=== PATIENT | female | born 1990 | race Caucasian/White ===

== ENCOUNTER 2016-04-10 16:58 | Outpatient (CLI) | payer OTHER ==
[~2016-04-10] VITALS: Ht 162.6 cm; Wt 90.0 kg
[~2016-04-10 16:58] MED LIST: ACET500C5 PO; FAMO-18 PO; PREN-39 PO
[2016-04-10 17:06] VITALS: BP 107/55; PULSE 72; RESP 19; Ht 162.6 cm; Wt 90.0 kg
--- NOTE | 2016-04-10 17:50 | RADRPT ---
PROCEDURE: US OB. CLINICAL INDICATION: Cholestasis. TECHNIQUE: Multiple sonographic images of the uterus were obtained. The images were revi ewed on a PACS workstation. COMPARISON: No prior studies are available for comparison. FINDINGS: There is a single live intrauterine gestation. heart rate is 139 beats per minute. Measurements were made in order to determine age. The results are as follows: BPD = 9.13 cm. HC = 32.10 cm. AC = 35.50 cm. FL = 7.33 cm. Estimated weight is 3458 +/- 519 grams. LMP growth percentile is 68%. Menstrual age by ultrasound dates is 37 weeks 4 days. The estimated date of delivery is 04/27/2016. Position is cephalic and placenta is anterior grade II. There is no evidence for an abruption or irene centa previa. IMPRESSION: 1. Single live intrauterine gestation of 37 weeks 4 days menstrual age by ultrasound dates. 2. The estimated date of delivery is 04/27/2016. RPTAT: QQ .Mati Roche MD, Date Time Electronically viewed and signed by .Mati Roche MD, on 04/10/2016 17:50 .R/
--- NOTE | 2016-04-10 17:56 | RADRPT ---
PROCEDURE: US biophysical profile. CLINICAL INDICATION: Cholestasis. TECHNIQUE: Multiple sonographic images of the uterus were obtained. The images were revi ewed on a PACS workstation. COMPARISON: No prior studies are available for comparison. FINDINGS: There is a single live intrauterine gestation. heart rate is 144 beats per minute. The position is cephalic. The placenta is anterior grade II with no abruption or previa. The TRACI is 12.6 cm. (Normal = 5-20 cm.) Breathing Movement: 2 Gross Body Movement: 2 Tone: 2 Qualitative Amniotic Fluid Volume: 2 TOTAL: 8 IMPRESSION: 1. The biophysical score is 8/8. RPTAT: QQ .Mati Roche MD, Date Time Electronically viewed and signed by .Mati Roche MD, on 04/10/2016 17:56 .R/
--- NOTE | 2016-04-10 18:56 | TRIAGE ---
OB Triage Datetime Report Generated by CPN: 04/10/2016 18:55 Datetime: 04/10/2016 18:10 Stage of : OB Triage Maternal Assessment Level of Consciousness: Fully Conscious DTR's/Clonus: DTRs 1+ Headache: Denies Breath Sounds, Left: Clear and Equal Breath Sounds, Right: Clear and Equal Nausea/Vomiting: Denies RUQ Epigastric Pain: Denies Labor Evaluation Frequency: IRREGULAR Monitor Mode: External Quality: Mild Pattern: Normal: <= 5 Contractions in 10 Minutes Resting Tone Padroni: Relaxed Heart Rate FHR Baseline Rate: 140 Monitor Mode: External US Variability: Moderate 6-25 bpm Accelerations: 15X15 Decelerations: None Category: Category I Pain Assessment Pain Presence: None/Denies Pain Type: N/A Vaginal Exam Membrane Status: Intact Datetime: 04/10/2016 17:22 EGA: 38.1 Datetime: 04/10/2016 17:12 Maternal Assessment Level of Consciousness: Fully Conscious DTR's/Clonus: DTRs 1+ Headache: Denies Blurred Vision: No Respiratory Effort: Unlabored Breath Sounds, Left: Clear and Equal Breath Sounds, Right: Clear and Equal Nausea/Vomiting: Denies RUQ Epigastric Pain: Denies Facial Edema: None Labor Evaluation Frequency: X1 Monitor Mode: External Duration (sec)2399: 60 Quality: Mild Pattern: Normal: <= 5 Contractions in 10 Minutes Resting Tone Padroni: Relaxed Heart Rate FHR Baseline Rate: 140 Monitor Mode: External US Variability: Moderate 6-25 bpm Accelerations: 15X15 Decelerations: None Category: Category I Pain Assessment Pain Presence: None/Denies Pain Type: N/A Vaginal Exam Membrane Status: Intact Datetime: 04/10/2016 17:00 Time of Arrival: 04/10/2016 17:00 Arrived By: Ambulatory Arrived From: Office Chief Complaint: R/O CHOLESTASIS Movement: Present Contractions: Irregular Time Contractions Began: 04/10/2016 08:00 Rupture of Membranes: Denies Vaginal Discharge: Denies Recent Sexual Intercouse: Denies Abdominal Trauma: Not Applicable Patient Complaints: Other Time Provider Notified: 04/10/2016 17:00 Provider Notified: UZAIR Initial Plan: NST, BPP, EFW
== END 2016-04-10 18:53 | disposition home or self-care (01) ==
LOC: OBT 16:58 → L-D 16:59 → OBT 18:53
PROVIDERS: ATTEND Obstetrics & Gynecology
DX: O47.1 False labor at or after 37 completed weeks of gestation (principal); Z3A.38 38 weeks gestation of pregnancy
CPT/HCPCS: 76815; 76818; Z7500; G0463

== ENCOUNTER 2016-04-13 19:29 | Outpatient (CLI) | payer OTHER ==
[~2016-04-13] VITALS: Ht 160 cm; Wt 88.2 kg
[2016-04-13 20:02] VITALS: Ht 160 cm; Wt 88.2 kg
[2016-04-13 20:03] VITALS: BP 123/63; PULSE 82; RESP 18
--- NOTE | 2016-04-13 21:11 | RADRPT ---
PROCEDURE: US OB biophysical profile. CLINICAL INDICATION: decreased movements TECHNIQUE: Multiple sonographic images of the pelvis were obtained. The images were reviewed on a PACS workstation. COMPARISON: 04/10/2016 FINDINGS: There is a single viable intrauterine gestation. Cardiac activity is present with 143 beats per min cowlitz. There is a vertex presentation. The placenta is anterior. There is no evidence of placental abruption. There is a normal amount of amniotic fluid with an TRACI = 9.7 cm. Biophysical profile: movement 2/2 tone 2/2. breathing 2/2 TRACI 2/2 Total 10/24 RPTAT: AA . IMPRESSION: Normal biophysical profile. . .Junior Becerra MD, MD Date Time Electronically viewed and signed by .Junior Becerra MD, MD on 04/13/2016 21:11 .S/
--- NOTE | 2016-04-13 22:39 | QN ---
Documentation Comment Laborist Dr Duran's pt 25 y.o. with an IUP at 38 w 4 d here for a follow up NST and BPP for presumed cholestasis as labs are pending. +FM. + Occasional UC's. No VB. Pt reports only itching on her shoulders with a rash? No hands or feet involvement. Was given a steroid cream in the clinic. PMHx: gallstones, possible cholestasis. PSHx: none. All: latex. WR=240/63. T=98.5 NST= baseline 130 bpm with accels to 170 bpm. No declels. UC's q 15-30 minutes. CX: close/thick/-3. BPP 8/8 with an TRACI of 9.7 cm. Vtx. Anterior placenta. A: IUP at 38 w 4 d. Presumed cholestasis. + Gallstones. P: For f/u in the clinic tomorrow as scheduled. Will give pt a copy of the BPP to take with her. LOIS TORRES MD Apr 13, 2016 22:38
== END 2016-04-13 22:00 | disposition home or self-care (01) ==
LOC: OBT 19:29 → L-D 19:29 → OBT 22:00
PROVIDERS: ATTEND Obstetrics & Gynecology
DX: O99.613 Diseases of the digestive system complicating pregnancy, third trimester (principal); K80.20 Calculus of gallbladder without cholecystitis without obstruction; Z3A.38 38 weeks gestation of pregnancy
CPT/HCPCS: 76818; Z7500; G0463

== ENCOUNTER 2016-04-18 06:00 | Inpatient (IN) | payer OTHER ==
[~2016-04-18] VITALS: Ht 160 cm; Wt 88.3 kg
[~2016-04-18 06:00] MED LIST changes: -ACET500C5 PO; -FAMO-18 PO
[2016-04-18 06:21] VITALS: Ht 160 cm; Wt 88.3 kg
[2016-04-18 06:22] VITALS: BP 118/60; PULSE 87; RESP 18
[2016-04-18] MEDS ORDERED: LIDOCAINE 1% (MPF) 30 ML INJ INJ PRN (06:30)
[2016-04-18] MEDS ORDERED: MISOPROSTOL 200 MCG TAB PR PRN ×2 (06:30→15:30)
[2016-04-18] MEDS ORDERED: CARBOPROST 250 MCG INJ IM PRN ×2 (06:30→15:30)
[2016-04-18] MEDS ORDERED: OXYTOCIN 30 UNITS/LR 500 ML IV SCH ×2 (06:30)
[2016-04-18] MEDS ORDERED: METHYLERGONOVINE 0.2 MG INJ IM PRN ×2 (06:30→15:30)
[2016-04-18] MEDS ORDERED: LACTATED RINGER'S 1,000 ML IV PRN (06:30)
[2016-04-18] MEDS ORDERED: OXYTOCIN 30 UNITS/LR 500 ML IV PRN ×2 (06:30→15:30)
[2016-04-18] MEDS: LACTATED RINGER'S 1,000 ML IV SCH ×2 (06:54→12:11)
[2016-04-18 07:05] LABS: BASOPHILS % 0.2 % (0.0-2.0); EOSINOPHILS # 0.1 10^3/ul (0.0-0.5); EOSINOPHILS % 1.3 % (0.0-7.0); HEMATOCRIT 37.8 % (37.0-47.0); HEMOGLOBIN 12.9 g/dl (12.0-16.0); LYMPHOCYTES # 2.1 10^3/ul (0.8-2.9); LYMPHOCYTES % 18.8 % (15.0-51.0); MEAN CORPUSCULAR HGB CONC 34.2 g/dl (32.0-37.0); MEAN CORPUSCULAR VOLUME 93.6 fl (82.0-101.0); MEAN PLATELET VOLUME 10.1 fl (7.4-10.4); MONOCYTE # 0.6 10^3/ul (0.3-0.9); MONOCYTES % 5.6 % (0.0-11.0); NEUTROPHIL # 8.4 10^3/ul (1.6-7.5); NEUTROPHILS % 74.1 % (39.0-77.0); PLATELET COUNT 195 10^3/UL (140-440); RED BLOOD COUNT 4.04 10^6/ul (4.20-5.40); RED CELL DISTRIBUTION WIDTH 14.1 % (11.5-14.5); UNCORRECTED WBC 11.3 10^3/ul (4.8-10.8); WHITE BLOOD COUNT 11.3 10^3/ul (4.8-10.8)
[2016-04-18 07:13] LABS: INR 0.88; PROTIME 11.9 Sec (12.2-14.2); PT RATIO 0.9
[2016-04-18 07:14] LABS: PARTIAL THROMBOPLASTIN TIME 27.8 Sec (25.0-35.0)
[2016-04-18 07:29] LABS: CONDITION 1
[2016-04-18] MEDS ORDERED: MISOPROSTOL 200 MCG TAB PO SCH (08:15)
[2016-04-18] MEDS ORDERED: FENTAnyl 2MCG/ML-ROPIV 0.2% 100 ML ONE (08:37)
[2016-04-18] MEDS ORDERED: NALOXONE (0.4 MG/ML) INJ IV PRN (10:00)
[2016-04-18] MEDS ORDERED: FENTAnyl 2MCG/ML-ROPIV 0.2% 100 ML BAG EPI SCH (10:00)
--- NOTE | 2016-04-18 12:43 | HP ---
Date/Time of Note Date/Time of Note DATE: 04/18/16 TIME: 12:40 OB - History Hx of Present Chief Complaint: contractions Last Menstrual Period: July 18, 2015 Estimated Due Date: Apr 23, 2016 : 2 Para: 1 Spontaneous : 0 Therapeutic : 0 Care: Good Care Ultrasounds: Normal mid trimester US Obstetrical Complications: None Medical Complications: None Past Family/Social History * Past Medical, Surgical, Family and Obstetric Histories reviewed from chart. GBS Status: Negative OB Admission Exam Vital Signs Vital Signs Vital Signs Date Time Temp Pulse Resp B/P Pulse Ox O2 Delivery O2 Flow Rate FiO2 04/18/16 06:22 98.2 87 18 118/60 Physical Exam HEENT: WNL Heart: Rhythm Normal Lungs: Clear Abdomen: WNL Extremities: Normal Cervical Dilatation: 1cm Effacement: 75% Station: -2 Membranes: Intact Heart Rate: 140's Accelerations: Accelerations Present Decelerations: No Decelerations Varibility: Moderate Contractions on Admission: < 5 Minutes Apart Last 72 hours Lab Results CBC & BMP 04/18/16 06:15 OB Assessment/Plan Reason for admission: active labor Plan: Expectant Management CHARLIE DUNNE MD Apr 18, 2016 12:43
--- NOTE | 2016-04-18 13:04 | LDN ---
Date/Time of Note Date/Time of Note DATE: 04/18/16 TIME: 13:01 Delivery Summary over intact perineum Placenta Delivered: Spontaneously Meconium: none Perineum intact?: Yes Anesthesia type: Epidural Estimated blood loss: 200 Sponge & Needle done & correct: Yes All needle counts correct: Yes Any foreign bodies felt in the: No Problems: Delivery Information Sex Infant Sex: female Apgars 1 Minute: 9 5 Minute: 9 Suctioning Nose & mouth suctioned at little: Yes Delee suction performed: No Umbilical Cord Umbilical cord with: 3 Vessels Cord presentations: no nuchal cord Cord Blood was obtained: Yes Mother & Baby Disposition Disposition Mom & Baby to Maternity; Good: Yes CHARLIE DUNNE MD Apr 18, 2016 13:04
[2016-04-18] MEDS ORDERED: LACTATED RINGER'S 1,000 ML IV* SCH (15:08)
[2016-04-18 15:10] VITALS: BP 119/70; PULSE 82; RESP 18
[2016-04-18] MEDS ORDERED: BENZOCAINE 20% 56 ML SPRAY TOP PRN (15:30)
[2016-04-18] MEDS ORDERED: ACETAMINOPHEN 325 MG TAB PO PRN (15:30)
[2016-04-18] MEDS ORDERED: ACETAMINOPHEN/CODEINE #3 TAB PO PRN (15:30)
[2016-04-18] MEDS ORDERED: DIBUCAINE 1% 30 GM OINT PR PRN (15:30)
[2016-04-18] MEDS: WITCH HAZEL/GLYCERIN PAD PR PRN (17:18)
[2016-04-18] MEDS: IBUPROFEN 600 MG TAB PO SCH ×2 (17:18→23:34)
[2016-04-18 19:45] VITALS: BP 109/54; PULSE 83; RESP 18
[2016-04-18] MEDS: SENNA/DOCUSATE NA (8.6MG/50MG) TAB PO SCH (21:00)
[2016-04-19 04:05] VITALS: BP 101/60; PULSE 85; RESP 18
[2016-04-19] MEDS: IBUPROFEN 600 MG TAB PO SCH ×3 (05:35→17:35)
[2016-04-19 07:41] LABS: BASOPHILS % 0.3 % (0.0-2.0); EOSINOPHILS # 0.1 10^3/ul (0.0-0.5); EOSINOPHILS % 1.4 % (0.0-7.0); HEMATOCRIT 34.3 % (37.0-47.0); HEMOGLOBIN 11.7 g/dl (12.0-16.0); LYMPHOCYTES % 18.6 % (15.0-51.0); MEAN CORPUSCULAR HEMOGLOBIN 31.8 pg (29.0-33.0); MEAN CORPUSCULAR VOLUME 93.5 fl (82.0-101.0); MEAN PLATELET VOLUME 10.3 fl (7.4-10.4); MONOCYTE # 0.5 10^3/ul (0.3-0.9); MONOCYTES % 4.5 % (0.0-11.0); NEUTROPHILS % 75.2 % (39.0-77.0); PLATELET COUNT 168 10^3/UL (140-440); RED BLOOD COUNT 3.67 10^6/ul (4.20-5.40); RED CELL DISTRIBUTION WIDTH 14.5 % (11.5-14.5); UNCORRECTED WBC 10.6 10^3/ul (4.8-10.8); WHITE BLOOD COUNT 10.6 10^3/ul (4.8-10.8)
[2016-04-19 07:46] LABS: CONDITION 1
[2016-04-19 08:00] VITALS: BP 116/61; PULSE 85; RESP 20
[2016-04-19] MEDS: WITCH HAZEL/GLYCERIN PAD PR PRN (08:50)
[2016-04-19] MEDS: SENNA/DOCUSATE NA (8.6MG/50MG) TAB PO SCH ×2 (08:50→20:50)
[2016-04-19 18:18] VITALS: BP 115/58; PULSE 70; RESP 18
[2016-04-19 19:40] VITALS: BP 104/60; PULSE 71; RESP 18
--- NOTE | 2016-04-19 23:16 | DS ---
Date/Time of Note Date/Time of Note DATE: 04/19/16 TIME: 23:15 Obstetrical Discharge Record Final Diagnosis Final Diagnosis: Term delivered Vaginal Delivery Obstetrical Delivery: Spontaneous Complications Augmentation: No Induction: No Condition on Discharge Physical Assessment Voiding: Yes Bowel Movement: Yes Breast: Soft, non-tender Fundus: Firm Calf Tenderness: No Patient Condition: Stable CHARLIE DUNNE MD Apr 19, 2016 23:16
[2016-04-19] MEDS ORDERED: LANOLIN 7 GM TUBE TOP PRN (23:30)
[2016-04-20] MEDS: IBUPROFEN 600 MG TAB PO SCH ×3 (00:05→12:08)
[2016-04-20 04:20] VITALS: BP 97/58; PULSE 61; RESP 18
[2016-04-20] MEDS ORDERED: DIPHTH/TET/ACEL PERTUSS (ADULT) 0.5 ML VIAL IM* ONE (09:00)
[2016-04-20 09:05] VITALS: BP 105/57; PULSE 65; RESP 19
[2016-04-20] MEDS: SENNA/DOCUSATE NA (8.6MG/50MG) TAB PO SCH (10:04)
== END 2016-04-20 15:47 | disposition home or self-care (01) | DRG 775 ==
LOC: L-D 06:00 → PP1 15:10
PROVIDERS: ADMIT Obstetrics & Gynecology; ATTEND Obstetrics & Gynecology
PROC: 10E0XZZ Delivery of Products of Conception, External Approach (ICD-10-PCS; principal; 2016-04-18 07:00)
DX: O80 Encounter for full-term uncomplicated delivery (principal); Z37.0 Single live birth; Z3A.39 39 weeks gestation of pregnancy
CPT/HCPCS: 62319; 85025; 85610; 85730; 86592; 86900; 86901; 87340; 90715; J2590; J3010; J7120

== ENCOUNTER 2017-03-06 20:23 | Emergency (ER) | payer OTHER ==
[~2017-03-06] VITALS: Ht 160 cm; Wt 84.2 kg
[2017-03-06 21:20] VITALS: Ht 160 cm; Wt 84.2 kg
--- NOTE | 2017-03-07 00:41 | ERD ---
ER Documentation Chief Complaint Chief Complaint pt reports for "weeks" she feels dizzy and hair is falling out HPI Is a 26-year-old female presenting to the emergency department complaining of having her hair fall out and feeling weak for the past month. Patient states that she went to see her primary care physician on Sunday in which they are investigating and getting blood work from her. Patient still does not know her results. She denies any fevers, chest pain, shortness of breath, cough. She does state that she just got off her control ROS All systems reviewed and are negative except as per history of present illness. Medications Home Meds Reported Medications Vits W-Ca,Fe,Fa(<1MG) ( Vitamins) 1 Tab Tablet, 1 TAB PO 12/23/14 Allergies Allergies: Coded Allergies: latex (Verified Allergy, Mild, 04/18/16) itchiness PMhx/Soc Medical and Surgical Hx: pt denies Surgical Hx History of Surgery: No Anesthesia Reaction: No Hx Neurological Disorder: No Hx Respiratory Disorders: No Hx Cardiac Disorders: No Hx Psychiatric Problems: No Hx Miscellaneous Medical Probl: Yes (gallstones) Hx Alcohol Use: No Hx Substance Use: No Hx Tobacco Use: No Smoking Status: Never smoker Physical Exam Vitals Vital Signs Date Time Temp Pulse Resp B/P Pulse Ox O2 Delivery O2 Flow Rate FiO2 03/06/17 21:20 98.3 75 16 134/87 100 Physical Exam Const: WDWN, NO acute distress Head: Atraumatic Eyes: Normal Conjunctiva ENT: Normal External Ears, Nose and Mouth. Neck: Full range of motion..~ No meningismus. Resp: Clear to auscultation bilaterally Cardio: Regular rate and rhythm, no murmurs Abd: Soft, non tender, non distended. Normal bowel sounds Skin: No petechiae or rashes Back: No midline or flank tenderness Ext: No cyanosis, or edema Neur: Awake and alert Psych: Normal Mood and Affect Procedures/MDM This is a 26-year-old female presenting to the emergency department complaining of generalized weakness and her hair falling out for the past few weeks. Patient is already seeing a primary care physician getting evaluated for this. She states that she has results for blood work pending. I discussed with her that this is the best that she continues to follow-up with her primary care physician since this has been going on for a few weeks. Patient is well appearing to be discharged home. I have given her precautions to return to the emergency department Departure Diagnosis: Primary Impression: Pressure in head Additional Impression: Hair changes Condition: Stable Patient Instructions: Oncology: Coping With Hair Loss, Self-Care for Headaches Additional Instructions: FOLLOW UP WITH YOUR PRIMARY CARE PHYSICIAN TOMORROW.Return to this facility if you are not improving as expected. KIMBERLY WOODARD PA-C Mar 07, 2017 00:41
== END 2017-03-06 23:30 | disposition home or self-care (01) ==
LOC: FTE 20:23
DX: R51 Headache (principal); L65.9 Nonscarring hair loss, unspecified
CPT/HCPCS: 99282

== ENCOUNTER 2017-09-25 19:49 | Emergency (ER) | END 2017-09-25 22:17 | disposition home or self-care (01) ==